=== PATIENT | female | born 2005 | race Caucasian/White ===

== ENCOUNTER 2023-04-09 13:29 | Outpatient (CLI) | payer MEDICAID, SELFPAY ==
[2023-04-09 14:08] VITALS: BMI 25.9
[2023-04-09 14:12] VITALS: BP 107/67; PULSE 100; PULSE 106; TEMP 36.2; O2SAT 97
--- NOTE | 2023-04-10 10:47 | OB.TRI.NOTE ---
HPI - General General Date of Admission: 04/09/23 Date of Service: 04/09/23 HPI Narrative CRYSTAL ACEVEDO, is a 17 F who presents with JUSTUS: 04/18/23. Presents with contractions PFSH PFSH Medical History (Updated 04/10/23 @ 10:50 by Linette Greenberg CNM) False labor Home Medications albuterol sulfate 90 mcg/actuation aerosol inhaler 2 inh inhalation Q4H PRN asthma 04/09/23 [History Last Taken Unknown] buspirone 10 mg tablet 10 mg PO BID 04/09/23 [History Last Taken 04/07/23 08:00 10 mg] ferrous sulfate 325 mg (65 mg iron) tablet (Feosol) 325 mg PO DAILY 04/09/23 [History Last Taken 04/04/23 17:00 325 mg] omeprazole 10 mg capsule,delayed release 10 mg PO DAILY 04/09/23 [History Last Taken 04/07/23 08:00 10 mg] vit no.95-ferrous fumarate 28 mg-folic acid 800 mcg tablet () 1 tab PO DAILY 04/09/23 [History Last Taken 04/05/23 08:00 1 TAB] Allergy/AdvReac Type Severity Reaction Status Date / Time No Known Allergies Allergy Verified 04/09/23 14:09 NST FHR Rate Baby A Baseline: 125 Variability:: Moderate Accelerations:: 15 x 15 Decelerations:: None NST Reactive:: Yes Uterine Activity:: Irregular Assessment & Plan (1) False labor: PLAN: Plan 1) NST reactive 2) No active labor 3) D/C home
== END 2023-04-09 16:10 | disposition home or self-care (01) ==
LOC: WPOUT 13:57 → WP 13:57
PROVIDERS: Referring Provider Advanced Practice Midwife; Visit Provider Advanced Practice Midwife
DX: O47.9 False labor, unspecified (principal)
CPT/HCPCS: 59025; 59050; 99221; G0378

== ENCOUNTER 2023-04-11 18:45 | Outpatient (CLI) | payer MEDICAID, SELFPAY ==
--- OUTSIDE RECORDS SUMMARY | 2023-04-11 19:00 | XMS RPT_ITS | CCD ---
Author Name Unknown Address [address] [place] [address] [address] [place] [address] Organization [facility] Care Team Providers Care Fur Drummer Name Role Phone AGGIE MCCLELLAN CNM Attending Unavailable AGGIE MCCLELLAN CNM Primary Care Unavailable AGGIE MCCLELLAN CNM Admitting Unavailable JL PATEL Attending Unavailable KEMAL SHORT Attending Unavailable TRUDI MENDEZ Referring Unavailable TRUDI MENDEZ Attending CANDICE Wallace Referring Unavailable Problems Problem Classification Problem Date Documented Da te Episodic/Chronic Residual codes; unclassified (1 source) 37 weeks gestation of ; Translations: [37 weeks gestation of ] Onset: 03-30-2023 Episodic Results Test Name Value Interpretation Reference Range Facil ity Encounters Encounter Date Encounter Type Care Provider Facility Start: 04-08-2023 ambulatory JL PATEL Facilit y:[facility] Start: 04-05-2023 End: 04-05-2023 ambulatory KEMAL SHORT Facility:[facility] Start: 03-30-2023 End: 03-31-2023 ambulatory TRUDI MENDEZ Facility:[facility] Start: 03-22-2023 End: 03-22-2023 ambulatory AGGIE Godinez [facility] Payers Date Payer Category Payer Medicaid [id number] 2003 Unknown [id number] Unknown [id number] Progress note 04-08-2023 Note Date & Type Note Facility 04-08-2023 Note HNO ID: [id number] Author: JL PATEL APRN.CNP Service: ? Author Type: Nurse Practitioner Type: Progress Notes Filed: 04/08/2023 17:00 Note Text: Patient did not log in for her virtual visit with the provider. She did not answer her phone when she was contacted. [facility] Progress note 04-08-2023 Note Date & Type Note Facility 04-08-2023 Note HNO ID: [id number] Author: ?, ?, ? Service: ? Author Type: ? Type: Progress Notes Filed: 04/08/2023 08:45 Note Text: POPULATION HEALTH NAVIGATION OUTREACH Action/FYI 3rd attempt left message to add accounting machine mechanic to ob provider field Patient Identified by Name and : NO Outreach Outcome/Action Unable to reach patient: Left message Did you use a PCP flex slot to schedule this appointment? N/A Reason for Outreach [place] Payer: Payor[place] / Plan[place] / Product Type: Medicaid / Navigation Signature: Yolette Meneses April 08, 2023 8:45 AM [facility] Progress note 04-07-2023 Note Date & Type Note Facility 04-07-2023 Note HNO ID: [id number] Author: JEWELL BANSAL RN Service: ? Author Type: Registered Nurse Type: Progress Notes Filed: 04/07/2023 09:11 Note Text: Patient referred to Blood Management for anemia evaluation/pre-surgical optimization. Current and complete lab data unavailable. Unable to complete evaluation. Referring provider is aware. [facility] Clinical Note 04-06-2023 Note Date & Type Note Facility 04-06-2023 Note Patient Outreach (NE TNAV) CRYSTAL ACEVEDO ([id number]) 1 F Date Time Provider Department 04/06/23 YOLETTE MENESES During your visit today, we recorded the following information about you: Yolette Meneses 04/06/2023 10:22 AM Signed POPULATION HEALTH NAVIGATION OUTREACH Action/FYI Left message to add accounting machine mechanic to OB provider field My chart sent Patient Identified by Name and : NO Outreach Outcome/Action Unable to reach patient: Left message MyChart message sent Did you use a PCP flex slot to schedule this appointment? N/A Reason for Outreach Payer: Payor[place] / [place] / Product Type: Medicaid / Care Gap Reviewed:: N/A Reminder: Reminder note to check Health Maintenance for items below Health Maintenance items due: Hepatitis B Vaccine(1 of 3 - 3-dose series) Never done Covid-19 Vaccine(1) Never done Asthma Action Plan Never done Asthma Control Test Never done Pneumococcal Vaccine(1 of 2 - PCV) Never done HPV Vaccine(1 - 2-dose series) Never done Spirometry Never done Annual PCP Team Chronic Disease Visit Never done DTaP,Tdap,Td Vaccine(1 - Tdap) Never done Influenza Vaccine(1) Never done Navigation Signature: Yolette Meneses April 06, 2023 10:20 AM Yolette Meneses 04/08/2023 8:45 AM Signed POPULATION HEALTH NAVIGATION OUTREACH Action/FYI 3rd attempt left message to add accounting machine mechanic to ob provider field Patient Identified by Name and : NO Outreach Outcome/Action Unable to reach patient: Left message Did you use a PCP flex slot to schedule this appointment? N/A Reason for Outreach [place] Payer: Pay[place] / [place] / Product Type: Medicaid / Navigation Signature: Yolette Meneses April 08, 2023 8:45 AM Allergies As of Date: 04/06/2023 (No Known Allergies) Date Reviewed: 04/05/2023 Reviewed by: Kemal Short MD - Fully Assessed Reason for Visit: Population Health Navigation Outreach [3910] Cmt: Ob/peds Prescriptions as of 04/08/2023 - multivit 47/iron/folate 1/dha (PNV-DHA ORAL) Take 1 tablet by mouth once daily. - buspirone HCl (BUSPAR ORAL) Take 10 mg by mouth two times a day. - ferrous sulfate (IRON, FERROUS SULFATE,) 325 mg (65 mg iron) tablet Take 325 mg by mouth once daily. - ALBUTEROL INHALATION Inhale as instructed as needed. - omeprazole (PRILOSEC) 20 mg capsule Take 20 mg by mouth once daily. Problem List As Of Date 04/06/2023 Noted Resolved Asthma [J45.909] 03/30/2023 Anxiety during [O99.340, F41.9] 03/30/2023 Depression complicating in third trim*03/30/2023 with care elsewhere in third*03/30/2023 Anemia complicating , third trimester *03/31/2023 Encounter Status:Closed by YOLETTE MENESES on 04/06/23 [facility] Progress note 04-06-2023 Note Date & Type Note Facility 04-06-2023 Note HNO ID: [id number] Author: ?, ?, ? Service: ? Author Type: ? Type: Progress Notes Filed: 04/06/2023 10:22 Note Text: POPULATION HEALTH NAVIGATION OUTREACH Action/FYI Left message to add accounting machine mechanic to OB provider field My chart sent Patient Identified by Name and : NO Outreach Outcome/Action Unable to reach patient: Left message MyChart message sent Did you use a PCP flex slot to schedule this appointment? N/A Reason for Outreach Payer: Payor[place] / Plan[place] / Product Type: Medicaid / Care Gap Reviewed:: N/A Reminder: Reminder note to check Health Maintenance for items below Health Maintenance items due: Hepatitis B Vaccine(1 of 3 - 3-dose series) Never done Covid-19 Vaccine(1) Never done Asthma Action Plan Never done Asthma Control Test Never done Pneumococcal Vaccine(1 of 2 - PCV) Never done HPV Vaccine(1 - 2-dose series) Never done Spirometry Never done Annual PCP Team Chronic Disease Visit Never done DTaP,Tdap,Td Vaccine(1 - Tdap) Never done Influenza Vaccine(1) Never done Navigation Signature: Yolette Meneses April 06, 2023 10:20 AM [facility] Progress note 04-05-2023 Note Date & Type Note Facility 04-05-2023 Note HNO ID: [id number] Author: ALIA BOYD RN Service: ? Author Type: Registered Nurse Type: Progress Notes Filed: 04/05/2023 16:49 Note Text: Received a disk from [facility] Medicine with anatomy US. Sent for scanning. Alia Boyd RN [facility] Progress note 03-30-2023 Note Date & Type Note Facility 03-30-2023 Note HNO ID: [id number] Author: TRUDI MENDEZ APRN.SANDY Service: ? Author Type: Resistor Winder Type: Progress Notes Filed: 03/31/2023 12:44 Note Text: INITIAL OB ASSESSMENT HPI: Crystal is a 17 year old here with sister in law to establish Obstetrical Care. No LMP recorded. Patient is . from OB Dating Form. Do you have regular periods/menstrual cycles? Yes was unplanned but accepted Complaints: cramping due to dehydration- seen in ED this week OB History T1 L0 SAB0 IAB0 Ectopic0 Multiple0 Live Births0 How many pregnancies have you had before? Have you had a prior urban between 20w and 36w6d? No Did you present in active spontaneous labor or have ruptured membranes, or advanced cervical dilation (greater than or equal to 4 cm) or effacement? No Did you have a previous baby with a GBS Infection? No Please select all that apply for any prior : N/A Did you have a partner with Herpes? No Prior : never History of 4th degree laceration: No Patient's Risk Screening for delivery: MEDICAL/PSYCHOSOCIAL HISTORY: History of hemorrhage or bleeding concerns: No Thyroid Disease: No History of chronic hypertension: No History of pre-existing diabetes: No BMI 27.64 kg/(m2) History of abnormal pap: No Prior treatment for cervical dysplasia: N/A. History of STDs: None Tobacco use: No E-Cigarette/Vaping Use: Yes Caffeine use: Yes Drug use: No Alcohol use: No Multivitamin with Folic acid: Yes Taoism or heritage: No Would refuse blood transfusion if medically necessary: No No results found for: ABORHD Social Needs: How often does this describe you? I don't have enough money to pay my bills: Never Within the past 12 months, have you worried that your food would run out before you had money to buy more? Sometimes In the past 12 months, has lack of reliable transportation kept you from going to medical appointments or work, or from getting things needed for daily living? Never In the past 12 months, have you had any concerns about having a place to live, or about the condition or quality of your housing? Never Would you like more information on any of the following (please check all that apply)? Resistor Winder care Social History: Do you have any history of depression, anxiety, PTSD, or other mood problems? Yes Do you have a history of abuse or trauma that may impact your experience? No Are you currently employed? No Depression/Anxiety Screening: admits to symptoms of depression. OB Depression and Anxiety Screening- This Encounter (since 03/29/2023) Over the past 2 weeks have you felt down, depressed, or hopeless? Positive - Further Testing Indicated Over the past two weeks, have you felt little interest or pleasure in doing things?? Positive - Further Testing Indicated I have been able to laugh and see the funny side of things. As much as I always could I have looked forward with enjoyment to things. Rather less than I used to I have blamed myself unnecessarily when things went wrong. Yes, most of the time I have been anxious or worried for no good reason. Yes, sometimes I have felt scared or panicky for no good reason. Yes, sometimes Things have been getting on top of me. Yes, sometimes I haven't been coping as well as usual I have been so unhappy that I have had difficulty sleeping. Yes, most of the time I have felt sad or miserable. Yes, most of the time I have been so unhappy that I have been crying. Yes, quite often The thought of harming myself has occurred to me. Hardly ever [place] Depression Scale Total 19 Feeling nervous, anxious or on edge 3-Nearly every day Not being able to stop or control worrying 1-Several days Anxiety Pre-Screening Total (If >/= 3 additional questions will be reviewed) 4 Worrying too much about different things 1-Several days Trouble relaxing 1-Several days Being so restless that it is hard to sit still 1-Several days Becoming easily annoyed or irritable 3-Nearly every day Feeling afraid, as if something awful might happen 1-Several days Anxiety (VIOLETA) Full Screening Total 11 Marital Status:Co-habitating Partner: Name: Mike Age: 20 Occupation: works in a [place] [employer] Gender: Male History of STDs: None PAST MEDICAL HISTORY Diagnosis Date Depression Generalized anxiety disorder PAST SURGICAL HISTORY Procedure Laterality Date REMOVAL GALLBLADDER 11/07/2018 Current Outpatient Medications Medication Sig Dispense Refill multivit 47/iron/folate 1/dha (PNV-DHA ORAL) Take 1 tablet by mouth once daily. buspirone HCl (BUSPAR ORAL) Take 10 mg by mouth two times a day. ferrous sulfate (IRON, FERROUS SULFATE,) 325 mg (65 mg iron) tablet Take 325 mg by mouth once daily. ALBUTEROL INHALATION Inhale as instructed as needed. omeprazole (PRILOSEC) 20 mg capsule Take 20 mg by mouth once daily (more content not included)... [facility] Summary Purpose Family History No Family History Records FoundNo Family History Records Found Advance Directives No Advanced Directives Records FoundNo Advanced Directives Records Found Additional Source Comments INFORMATION SOURCE (unrecogn ized section and content) DATE CREATED AUTHOR AUTHOR'S ORGANIZ ATION 04/10/2023 [facility] FOR RECORDS PERTAINING TO PATIENTS WHO ARE OR HAVE BEEN ENROLLED IN A CHEMICAL DEPENDENCY/SUBSTANCEABUSE PROGRAM, SOME INFORMATION MAY BE OMITTED. This clinical summary was aggregated from multiple sources. Caution should be exercised in using it in the provision of clinical care. This summary normalizes information from multiple sources, and as a consequence, information in this document may materially change the coding, format and clinical context of patient data. In addition, data may be omitted in some cases. CLINICAL DECISIONS SHOULD BE BASED ON THE PRIMARY CLINICAL RECORDS. [facility] [employer] [facility]. provides no warranty or guarantee of the accuracy or completeness of information in this document.
[2023-04-11 19:48] VITALS: BP 106/71; PULSE 85; O2SAT 98
[2023-04-11 19:50] VITALS: TEMP 36.1
[2023-04-11 20:53] VITALS: BMI 25.9
[2023-04-11] MEDS: Acetaminophen 500 MG Tablet 1000 MG PO (21:11)
--- NOTE | 2023-04-11 21:13 | NURSING ---
this RN reviewed discharge instructions with patient and significant other, patient and partner verbalized understanding and states no questions at his time. Patient discharged home
--- NOTE | 2023-04-14 09:00 | OB.TRI.NOTE ---
HPI - General General Date of Service: 04/11/23 HPI Narrative CRYSTAL ACEVEDO, is a 17 F @ 38+ weeks c/o contractions Maternal Data Information JUSTUS Calculator Estimated Delivery Date Method Current WG Current Estimate 04/18/23 Manual 39w 3d PFSH PFS Medical History (Updated 04/14/23 @ 09:[address] Kinsey Chacon MD) Anxiety Asthma Depression False labor depression Home Medications albuterol sulfate 90 mcg/actuation aerosol inhaler 2 inh inhalation Q4H PRN asthma 04/09/23 [History Last Taken Unknown] buspirone 10 mg tablet 10 mg PO BID 04/09/23 [History Last Taken 04/07/23 08:00 10 mg] ferrous sulfate 325 mg (65 mg iron) tablet (Feosol) 325 mg PO DAILY 04/09/23 [History Last Taken 04/04/23 17:00 325 mg] omeprazole 10 mg capsule,delayed release 10 mg PO DAILY 04/09/23 [History Last Taken 04/07/23 08:00 10 mg] vit no.95-ferrous fumarate 28 mg-folic acid 800 mcg tablet () 1 tab PO DAILY 04/09/23 [History Last Taken 04/05/23 08:00 1 TAB] Allergy/AdvReac Type Severity Reaction Status Date / Time No Known Allergies Allergy Verified 04/11/23 20:55 Social History Smoking Status: Current some day smoker History Elective abortions Hx Para 1 Spontaneous abortions Hx # Term Pregnancies Ectopic pregnancies Hx # Pregnancies Multiple births # of living children Physical Exam Narrative /-3 NST FHR Rate Baby A Baseline: 130s Variability:: Moderate Accelerations:: 10 x 10 Decelerations:: None (possible one variable - but reactive cat 1 for >20 min after that) NST Reactive:: Yes FHR Category:: Category I Uterine Activity:: irregular Assessment & Plan (1) Irregular contractions: PLAN: Plan @ 38+ weeks, false labor dc home nst reactive cat 1 no Cervical change
== END 2023-04-11 21:13 | disposition home or self-care (01) ==
LOC: WPOUT 18:58 → WP 18:58
PROVIDERS: Referring Provider Obstetrics & Gynecology; Visit Provider Obstetrics & Gynecology
DX: O47.1 False labor at or after 37 completed weeks of gestation (principal); O99.333 Smoking (tobacco) complicating pregnancy, third trimester; F17.200 Nicotine dependence, unspecified, uncomplicated; Z3A.38 38 weeks gestation of pregnancy
CPT/HCPCS: 59025; 59050; 99221; G0378

== ENCOUNTER 2023-04-12 20:45 | Inpatient (IN) | payer MEDICAID, SELFPAY ==
[2023-04-12] VITALS (24 sets, daily range): BP systolic 94–127; BP diastolic 52–78; PULSE 65–100; TEMP 36.7; O2SAT 96–100; BMI 25.0
--- OUTSIDE RECORDS SUMMARY | 2023-04-12 20:41 | XMS RPT_ITS | CCD ---
Author Name Unknown Address [address] [place] [address] [address] [place] [id number] Organization [facility] Care Team Providers Care Pt Escort Name Role Phone AGGIE MCCLELLAN CNM Attending [...] Facility Start: 04-08-2023 ambulatory JL PATEL Facilit y:[facility] Start: 04-05-2023 End: 04-05-2023 ambulatory KEMAL SHORT Facility:[facility] Start: 03-30-2023 End: 03-31-2023 ambulatory TRUDI MENDEZ Facility:[facility] Start: 03-22-2023 End: 03-22-2023 ambulatory AGGIE Godinez [facility] Payers Date Payer Category Payer Medicaid [id number] 2003 Unknown [id number] Unknown [id number] Progress note 04-08-2023 Note Date & Type Note Facility 04-08-2023 Note HNO ID: [id number] Author: JL PATEL APRN.CNP Service: ? Author Type: Nurse Practitioner Type: Progress Notes Filed: 04/08/2023 17:00 Note Text: Patient did not log in for her virtual visit with the provider. She did not answer her phone when she was contacted. [facility] Progress note 04-08-2023 Note Date & Type Note Facility 04-08-2023 Note HNO ID: [id number] Author: ?, ?, ? Service: ? Author Type: ? Type: Progress Notes Filed: 04/08/2023 08:45 Note Text: POPULATION HEALTH NAVIGATION OUTREACH Action/FYI 3rd attempt left message to add cloth weigher to ob provider field Patient Identified by Name and : NO Outreach Outcome/Action Unable to reach patient: Left message Did you use a PCP flex slot to schedule this appointment? N/A Reason for Outreach [place] Payer: Payor[place] / Plan: [place] MED[place] / Product Type: Medicaid / Navigation Signature: Yolette Meneses April 08, 2023 8:45 AM [facility] Progress note 04-07-2023 Note Date & Type Note Facility 04-07-2023 Note HNO ID: [id number] Author: JEWELL BANSAL RN Service: ? Author Type: Registered Nurse Type: Progress Notes Filed: 04/07/2023 09:11 Note Text: Patient referred to Blood Management for anemia evaluation/pre-surgical optimization. Current and complete lab data unavailable. Unable to complete evaluation. Referring provider is aware. [facility] Clinical Note 04-06-2023 Note Date & Type Note Facility 04-06-2023 Note Patient Outreach (NE TNAV) CRYSTAL ACEVEDO ([id number]) 1 F Date Time Provider Department 04/06/23 YOLETTE MENESES During your visit today, we recorded the following information about you: Yolette Meneses 04/06/2023 10:22 AM Signed POPULATION HEALTH NAVIGATION OUTREACH Action/FYI Left message to add cloth weigher to OB provider field My chart sent Patient Identified by Name and : NO Outreach Outcome/Action Unable to reach patient: Left message MyChart message sent Did you use a PCP flex slot to schedule this appointment? N/A Reason for Outreach Payer: Pay[place] / Plan: [place] / Product Type: Medicaid / Care [...] Action/FYI 3rd attempt left message to add cloth weigher to ob provider field Patient Identified by Name and : NO Outreach Outcome/Action Unable to reach patient: Left message Did you use a PCP flex slot to schedule this appointment? N/A Reason for Outreach [place] Payer: Pay[place] / Plan[place] / Product Type: Medicaid / Navigation [...] Encounter Status:Closed by YOLETTE MENESES on 04/06/23 [facility] Progress note 04-06-2023 Note Date & Type Note Facility 04-06-2023 Note HNO ID: [id number] Author: ?, ?, ? Service: ? Author Type: ? Type: Progress Notes Filed: 04/06/2023 10:22 Note Text: POPULATION HEALTH NAVIGATION OUTREACH Action/FYI Left message to add cloth weigher to OB provider field My chart sent Patient Identified by Name and : NO Outreach Outcome/Action Unable to reach patient: Left message MyChart message sent Did you use a PCP flex slot to schedule this appointment? N/A Reason for Outreach Payer: Pay[place] / Plan: [place] / Product Type: Medicaid / Care [...] Yolette Meneses April 06, 2023 10:20 AM [facility] Progress note 04-05-2023 Note Date & Type Note Facility 04-05-2023 Note HNO ID: [id number] Author: ALIA BOYD RN Service: ? Author Type: Registered Nurse Type: Progress Notes Filed: 04/05/2023 16:49 Note Text: Received a disk from [facility] Medicine with anatomy US. Sent for scanning. Alia Boyd RN [facility] Progress note 03-30-2023 Note Date & Type Note Facility 03-30-2023 Note HNO ID: [id number] Author: TRUDI MENDEZ APRN.SANDY Service: ? Author Type: Livestock Buyer Type: Progress Notes Filed: 03/31/2023 12:44 Note [...] use: No Multivitamin with Folic acid: Yes Cheondoism or heritage: No Would refuse blood transfusion [...] the following (please check all that apply)? Livestock Buyer care Social History: Do you have any [...] myself has occurred to me. Hardly ever [place] Depression Scale Total 19 Feeling nervous, anxious [...] Mike Age: 20 Occupation: works in a [employer] Gender: Male History of STDs: None PAST [...] mouth once daily (more content not included)... [facility] Summary Purpose Family History No Family History Records FoundNo Family History Records Found Advance Directives No Advanced Directives Records FoundNo Advanced Directives Records Found Additional Source Comments INFORMATION SOURCE (unrecogn ized section and content) DATE CREATED AUTHOR AUTHOR'S ORGANIZ ATION 04/10/2023 [facility] FOR RECORDS PERTAINING TO PATIENTS WHO ARE [...] BE BASED ON THE PRIMARY CLINICAL RECORDS. [facility] [employer] [facility]. provides no warranty or guarantee of the accuracy or completeness of information in this document.
--- OUTSIDE RECORDS SUMMARY | 2023-04-12 20:52 | XMS RPT_ITS | CCD ---
Author Name Unknown Address [address] [place] [address] [address] [place] [id number] Organization [facility] Care Team Providers Care Mental Health Worker Name Role Phone AGGIE MCCLELLAN CNM Attending [...] Facility Start: 04-08-2023 ambulatory JL PATEL Facilit y:[facility] Start: 04-05-2023 End: 04-05-2023 ambulatory KEMAL SHORT Facility:[facility] Start: 03-30-2023 End: 03-31-2023 ambulatory TRUDI MENDEZ Facility:[facility] Start: 03-22-2023 End: 03-22-2023 ambulatory AGGIE Godinez [facility] Payers Date Payer Category Payer Medicaid [id number] 2003 Unknown [id number] Unknown [id number] Progress note 04-08-2023 Note Date & Type Note Facility 04-08-2023 Note HNO ID: [id number] Author: JL PATEL APRN.CNP Service: ? Author Type: Nurse Practitioner Type: Progress Notes Filed: 04/08/2023 17:00 Note Text: Patient did not log in for her virtual visit with the provider. She did not answer her phone when she was contacted. [facility] Progress note 04-08-2023 Note Date & Type Note Facility 04-08-2023 Note HNO ID: [id number] Author: ?, ?, ? Service: ? Author Type: ? Type: Progress Notes Filed: 04/08/2023 08:45 Note Text: POPULATION HEALTH NAVIGATION OUTREACH Action/FYI 3rd attempt left message to add calciminer to ob provider field Patient Identified by Name and : NO Outreach Outcome/Action Unable to reach patient: Left message Did you use a PCP flex slot to schedule this appointment? N/A Reason for Outreach [place] Payer: Payor[place] / Plan: [place] / Product Type: Medicaid / Navigation Signature: Yolette Meneses April 08, 2023 8:45 AM [facility] Progress note 04-07-2023 Note Date & Type Note Facility 04-07-2023 Note HNO ID: [id number] Author: JEWELL BANSAL RN Service: ? Author Type: Registered Nurse Type: Progress Notes Filed: 04/07/2023 09:11 Note Text: Patient referred to Blood Management for anemia evaluation/pre-surgical optimization. Current and complete lab data unavailable. Unable to complete evaluation. Referring provider is aware. [facility] Clinical Note 04-06-2023 Note Date & Type Note Facility 04-06-2023 Note Patient Outreach (NE TNAV) CRYSTAL ACEVEDO ([id number]) 1 F Date Time Provider Department 04/06/23 YOLETTE MENESES During your visit today, we recorded the following information about you: Yolette Meneses 04/06/2023 10:22 AM Signed POPULATION HEALTH NAVIGATION OUTREACH Action/FYI Left message to add calciminer to OB provider field My chart sent Patient Identified by Name and : NO Outreach Outcome/Action Unable to reach patient: Left message MyChart message sent Did you use a PCP flex slot to schedule this appointment? N/A Reason for Outreach Payer: Pay[place] / Plan[place] / Product Type: Medicaid / Care [...] Meneses April 06, 2023 10:20 AM Yolette Meneess 04/08/2023 8:45 AM Signed POPULATION HEALTH NAVIGATION OUTREACH Action/FYI 3rd attempt left message to add calciminer to ob provider field Patient Identified by Name and : NO Outreach Outcome/Action Unable to reach patient: Left message Did you use a PCP flex slot to schedule this appointment? N/A Reason for Outreach [place] Payer: Pay[place] / [place] / Product Type: Medicaid / Navigation [...] Encounter Status:Closed by YOLETTE MENESES on 04/06/23 [facility] Progress note 04-06-2023 Note Date & Type Note Facility 04-06-2023 Note HNO ID: [id number] Author: ?, ?, ? Service: ? Author Type: ? Type: Progress Notes Filed: 04/06/2023 10:22 Note Text: POPULATION HEALTH NAVIGATION OUTREACH Action/FYI Left message to add calciminer to OB provider field My chart sent Patient Identified by Name and : NO Outreach Outcome/Action Unable to reach patient: Left message MyChart message sent Did you use a PCP flex slot to schedule this appointment? N/A Reason for Outreach Payer: Pay[place] / [place] / Product Type: Medicaid / Care [...] Yolette Meneses April 06, 2023 10:20 AM [facility] Progress note 04-05-2023 Note Date & Type Note Facility 04-05-2023 Note HNO ID: [id number] Author: ALIA BOYD RN Service: ? Author Type: Registered Nurse Type: Progress Notes Filed: 04/05/2023 16:49 Note Text: Received a disk from [facility] Medicine with anatomy US. Sent for scanning. Alia Boyd RN [facility] Progress note 03-30-2023 Note Date & Type Note Facility 03-30-2023 Note HNO ID: [id number] Author: TRUDI MENDEZ APRN.SANDY Service: ? Author Type: Pet Training Instructor Type: Progress Notes Filed: 03/31/2023 12:44 Note [...] use: No Multivitamin with Folic acid: Yes Sikh or heritage: No Would refuse blood transfusion [...] the following (please check all that apply)? Pet Training Instructor care Social History: Do you have any [...] myself has occurred to me. Hardly ever [place] Depression Scale Total 19 Feeling nervous, anxious [...] mouth once daily (more content not included)... [facility] Summary Purpose Family History No Family History Records FoundNo Family History Records Found Advance Directives No Advanced Directives Records FoundNo Advanced Directives Records Found Additional Source Comments INFORMATION SOURCE (unrecogn ized section and content) DATE CREATED AUTHOR AUTHOR'S ORGANIZ ATION 04/10/2023 [facility] FOR RECORDS PERTAINING TO PATIENTS WHO [...] BE BASED ON THE PRIMARY CLINICAL RECORDS. [facility] [employer] [facility]. provides no warranty or guarantee of the accuracy or completeness of information in this document.
[2023-04-12] MEDS: LACTATED RINGERS 500 ML 999 ML IV (21:02)
[2023-04-12 21:11] LABS: Absolute Lymphocyte Count 1.28 X10^3/uL (0.83-4.51); Basophil# 0.03 X10^3/uL; Basophil% 0.4 % (0-1); Eosinophil# 0.02 X10^3/uL; Eosinophils% 0.3 % (0-5); Hematocrit 30.4 % (37-47); Hemoglobin 9.2 g/dL (12.0-15.0); Lymphocyte # 1.28 X10^3/ul (0.83-4.51); Lymphocyte % 16.3 % (19-41); Mean Corp Hgb Conc 30.3 g/dL (32-36); Mean Corpuscular Hgb 22.2 pg (27.0-32.0); Mean Corpuscular Volume 73.3 fL (81-99); Mean Platelet Vol. 9.9 fl (6.2-12.0); Monocyte# 0.49 X10^3/uL; Monocyte% 6.2 % (0-10); NRBC Flagged by Analyzer 0 % (0-5); Neutrophil % 76.3 % (47-70); Platelet Count 337 K/mm3 (150-450); RBC Distribution Width CV 15.8 % (11.6-14.6); RBC Distribution Width SD 40.9 fl (35.1-43.9); Red Blood Count 4.15 M/mm3 (4.2-5.4); White Blood Count 7.9 K/mm3 (4.4-11.0)
[2023-04-12] MEDS: Lactated Ringers 1,000 ML 200 ML IV (21:31)
[2023-04-12 21:46] LABS: Syphilis Antibodies Non-reactive
--- NOTE | 2023-04-12 22:02 | PCM.HP.OB ---
HPI - General General Date of Admission: 04/12/23 HPI Narrative CRYSTAL ACEVEDO, is a 17 F who presents at 39w1d with JUSTUS 04/18/23 . Maternal Data Information JUSTUS Calculator Estimated Delivery Date Method Current WG Current Estimate 04/18/23 Manual 39w 1d PFSH PFS Medical History (Updated 04/12/23 @ 22:06 by Linette Greenberg CNM) Anxiety Asthma Depression False labor depression Home Medications albuterol sulfate 90 mcg/actuation aerosol inhaler 2 inh inhalation Q4H PRN asthma 04/09/23 [History Last Taken Unknown] buspirone 10 mg tablet 10 mg PO BID 04/09/23 [History Last Taken 04/07/23 08:00 10 mg] ferrous sulfate 325 mg (65 mg iron) tablet (Feosol) 325 mg PO DAILY 04/09/23 [History Last Taken 04/04/23 17:00 325 mg] omeprazole 10 mg capsule,delayed release 10 mg PO DAILY 04/09/23 [History Last Taken 04/07/23 08:00 10 mg] vit no.95-ferrous fumarate 28 mg-folic acid 800 mcg tablet () 1 tab PO DAILY 04/09/23 [History Last Taken 04/05/23 08:00 1 TAB] Allergy/AdvReac Type Severity Reaction Status Date / Time No Known Allergies Allergy Verified 04/11/23 20:55 Social History Smoking Status: Current some day smoker History Elective abortions Hx Para 1 Spontaneous abortions Hx # Term Pregnancies Ectopic pregnancies Hx # Pregnancies Multiple births # of living children ROS Constitutional Constitutional: Reports systems reviewed and no addt'l complaints, except as documented; Denies headache(s) Eyes Eyes: Denies acute decrease in peripheral vision, blurry vision or change in vision ENT HEENT: Reports systems reviewed and no addt'l complaints, except as documented Cardiovascular Cardiovascular: Denies chest pain or dizziness Respiratory/Chest Respiratory/Chest: Denies cough, dyspnea, dyspnea on exertion, shortness of breath at rest or shortness of breath with exertion Gastrointestinal Gastrointestinal: Denies abdominal pain, diarrhea, nausea or vomiting Genitourinary Genitourinary: Denies abdominal discomfort Musculoskeletal Musculoskeletal: Denies limited range of motion Integumentary Integumentary: Reports systems reviewed and no addt'l complaints, except as documented Neurologic Neurologic: Reports systems reviewed and no addt'l complaints, except as documented Psychiatric Psychiatric: Reports systems reviewed and no addt'l complaints, except as documented Endocrine Endocrinology: Reports systems reviewed and no addt'l complaints, except as documented Hematologic/Lymphatic Hematologic/Lymphatic: Reports systems reviewed and no addt'l complaints, except as documented Allergic/Immunologic Allergic/Immunologic: Reports systems reviewed and no addt'l complaints, except as documented Vital Signs Vital Signs Vital Signs: 04/12/23 20:39 04/12/23 20:39 04/12/23 20:39 Temperature Temperature Source Temporal Pulse Rate 82 Blood Pressure 113/70 BP Systolic 113 BP Diastolic 70 Pulse Ox 04/12/23 20:39 04/12/23 20:39 04/12/23 21:45 Temperature 98.0 F Temperature Source Pulse Rate 81 Blood Pressure BP Systolic BP Diastolic Pulse Ox 98 04/12/23 21:45 04/12/23 21:50 04/12/23 21:50 Temperature Temperature Source Pulse Rate 84 Blood Pressure BP Systolic BP Diastolic Pulse Ox 96 99 04/12/23 21:51 04/12/23 21:51 04/12/23 21:54 Temperature Temperature Source Pulse Rate 80 Blood Pressure 94/53 L 94/55 L BP Systolic 94 94 BP Diastolic 53 55 Pulse Ox 04/12/23 21:55 04/12/23 21:55 04/12/23 21:59 Temperature Temperature Source Pulse Rate 68 Blood Pressure 101/52 L BP Systolic 101 BP Diastolic 52 Pulse Ox 98 04/12/23 22:00 04/12/23 22:00 Temperature Temperature Source Pulse Rate 79 Blood Pressure BP Systolic BP Diastolic Pulse Ox 99 Physical Exam Const alert and oriented x3 General Appearance: cooperative Orientation / Consciousness: awake, oriented to person, oriented to place and oriented to time Exam Limitations: no limitations HEENT normocephalic Head and Scalp: normal to inspection, normocephalic and atraumatic Face and Sinus: normal facial exam Eyes General Eye: normal appearance of both eyes Neck full ROM Chest Chest: symmetrical chest wall rise Resp normal respiratory effort and normal air movement Auscultation: clear to auscultation bilaterally Cardio regular rate, regular rhythm, S1 normal heart sound, S2 normal heart sound, no murmurs, no rub, no gallops and no clicks GI normal to inspection, nondistended, normoactive bowel sounds and non-tender appearance of the vagina normal Bladder / Kidney Exam: no CVA tenderness Manual OB Exam: estimated gestational size appropriate, presentation cephalic and dilated 7 Amniotic Fluid: clear amniotic fluid Back/Spine normal ROM Extremity normal to inspection and full ROM Skin no rashes or lesions noted Neuro oriented x3, CN's II-XII intact bilaterally and moves all extremities Sensorium / Orientation: awake, alert and oriented to person Motor Exam: clonus absent Deep Tendon Reflexes: Rt Patellar (L4): 2+ and Lt Patellar (L4): 2+ Labs Labs Labs: Blood Type O POSITIVE Antibody Screen NEGATIVE Hct 30.4 % (37-47) L Hgb 9.2 g/dL (12.0-15.0) L Syphilis Total Ab Non-reactive RPR negative GC/CT negative GBS negative HepC negative HBsAG negative Rubella equivocal HIV negative O positive Assessment & Plan (1) Active labor: (2) SROM (spontaneous rupture of membranes): (3) 39 weeks gestation of : (4) Anemia affecting : (5) Depression affecting : (6) Rubella non-immune status, antepartum: (7) Vaping nicotine dependence, tobacco product: PLAN: Plan 1) Admit to labor and delivery 2) GBS negative 3) Epidural for pain management 4) Continuous EFM 5) Category 1 FHT 6) Routine Labs 7) Dr.James rodriguez physician and notified of admission. michael physician, notified of patient status and of above assessment and plan
[2023-04-12] MEDS: Oxytocin 15 Units/NS 250ml 15 UNITS/250 ML IV.SOLN 999 UNITS IV (22:36)
[2023-04-12] MEDS: Oxytocin 10 UNITS/ML Vial IM (22:44)
[2023-04-12] MEDS: Methylergonovine 0.2 MG/ML Ampul 0.200000000000000011 MG IM (22:44)
--- NOTE | 2023-04-12 22:52 | EX.PCM.OBRPT ---
Maternal Data Information JUSTUS Calculator Estimated Delivery Date Method Current WG Current Estimate 04/18/23 Manual 39w 1d Vaginal Delivery Maternal Presentation Maternal Presentation: Active Labor and Spontaneous Rupture of Membranes Maternal Presentation: Active labor Operative Information Date of Procedure: 04/12/23 Pre-Operative Diagnosis: SROM Post-Operative Diagnosis: , PPH Surgery / Procedure Performed: Spontaneous Vaginal Delivery Type of Anesthesia: Epidural Special Medications: Pitocin 10 u IM, Methergine 0.2 mg IM, Pitocin 15 units in 250 ml NS Estimated Blood Loss: 500 ml Time of Delivery: 22:35 Findings Description of Procedure: Progressed to complete with urge to push. Epidural for pain management. of viable female over intact perineum. APGARS 8 , 9 respectively. Infant head delivered with body immediately forthcoming, CAN x1, delivered through. Placed on maternal abdomen, strong cry. Mouth and nares suctioned for secretions. Pitocin started for active 3rd stage management. Cord doubly clamped and cut by grandmother after pulsations ceased, delayed cord clamping. Placenta delivered intact via mccarty , 3 vessel cord intact. Uterine atony with increased bleeding noted. Pitocin wide open and bimanual compression. Bladder drained with compression. Uterine atony still noted, Methergine 0.2 mg given IM. Hemostasis achieved. Perineum inspected: right labial laceration unrepaired, hemostasis achieved. Fundus firm and hemostasis achieved. EBL 500 ml. Mom and baby stable, planning to breastfeed. Family bonding well. Dr. Forte notified of delivery. Presentation: Vertex and TONY Amniotic Membrane Rupture Type: Spontaneous Time of Membrane Rupture: 19:56 Amniotic Fluid Description: Clear Placental Delivery Description: Spontaneous Placenta Disposition: [facility] Cord Vessel Description: 3 Vessels Cord Entanglement: Around neck x 1, loose Nuchal Cord Compression: Without compression Infant A Gender: Female (1 minute): 8 (5 minute): 9 Delayed Cord Clamping: Yes Post Vaginal Delivery Medications Given After Delivery: IV Pitocin, IM Pitocin and IM Methergin Episiotomy Description: None Laceration: Perineal Extension/lac and 1st degree Complication Complications: None
[2023-04-13] VITALS (13 sets, daily range): BP systolic 94–122; BP diastolic 52–67; PULSE 74–100; RESP 15–16; TEMP 36.2–37; O2SAT 98–99
[2023-04-13] MEDS: Acetaminophen 500 MG Tablet 1000 MG PO (02:22)
[2023-04-13 05:08] LABS: Absolute Lymphocyte Count 1.13 X10^3/uL (0.83-4.51); Absolute Neutrophil Count 9.2 X10^3/uL (2.0-7.7); Basophil# 0.02 X10^3/uL; Basophil% 0.2 % (0-1); Hematocrit 26.9 % (37-47); Hemoglobin 7.8 g/dL (12.0-15.0); Lymphocyte # 1.13 X10^3/ul (0.83-4.51); Mean Platelet Vol. 9.7 fl (6.2-12.0); Monocyte# 0.88 X10^3/uL; Monocyte% 7.8 % (0-10); NRBC Flagged by Analyzer 0 % (0-5); Neutrophil # 9.18 X10^3/uL (2.7-7.7); Neutrophil % 81.5 % (47-70); Platelet Count 257 K/mm3 (150-450); RBC Distribution Width CV 15.8 % (11.6-14.6); RBC Distribution Width SD 42.9 fl (35.1-43.9); Red Blood Count 3.54 M/mm3 (4.2-5.4); White Blood Count 11.3 K/mm3 (4.4-11.0)
[2023-04-13] MEDS: Ibuprofen 600 MG Tablet PO ×2 (08:01→19:15)
[2023-04-13] MEDS: 0.9% Saline Lock 10 ML Syringe IV ×2 (08:02→09:01)
[2023-04-13] MEDS: Iron Sucrose Complex 200 MG in 0.9% Normal Saline (100mL Bag) 100 ML 220 MG IV (08:03)
--- NOTE | 2023-04-13 08:32 | PCM.PN.OB ---
Subjective Subjective Patient seen at bedside. Feeling good. Denies any pain. Ambulating and voiding without difficulty. Lochia decreasing. with minimal support. Feeling tired . Objective Data Objective Data Vital Signs: Vital Signs Temp Pulse Resp BP Pulse Ox O2 Del Method 97.2 F L 88 15 96/55 L 98 Room Air 04/13/23 08:00 04/13/23 08:00 04/13/23 08:00 04/13/23 08:00 04/13/23 08:00 04/13/23 08:00 Oxygen Delivery Method Room Air Weight: 155 lb 3.287 oz Body Mass Index (BMI) 25.0 Intake & Output: Intake and Output for Last 24 Hours 04/11/23 04/12/23 04/13/23 23:59 23:59 23:59 Intake Total 949.52 / 949.52 Output Total 500 / 500 950 / 950 Balance 449.52 / 449.52 -950 / -950 Lab / Micro Data Attestation: I reviewed the patient's lab results. 04/13/23 04:58 Labs: Laboratory Results - last 24 hr 04/12/23 20:55: WBC 7.9, RBC 4.15 L, Hgb 9.2 L, Hct 30.4 L, MCV 73.3 L, MCH 22.2 L, MCHC 30.3 L, RDW Std Deviation 40.9, RDW Coeff of Erica 15.8 H, Plt Count 337, MPV 9.9, Immature Gran % (Auto) 0.500, Neut % (Auto) 76.3 H, Lymph % (Auto) 16.3 L, [place] % (Auto) 6.2, Eos % (Auto) 0.3, Baso % (Auto) 0.4, Absolute Neuts (auto) 6.0, Absolute Lymphs (auto) 1.28, Nucleated RBC % 0, Syphilis Total Ab Non-reactive, Blood Type O POSITIVE, Antibody Screen NEGATIVE 04/13/23 04:58: WBC 11.3 H, RBC 3.54 L, Hgb 7.8 L, Hct 26.9 L, MCV 76.0 L, MCH 22.0 L, MCHC 29.0 L, RDW Std Deviation 42.9, RDW Coeff of Erica 15.8 H, Plt Count 257, MPV 9.7, Immature Gran % (Auto) 0.500, Neut % (Auto) 81.5 H, Lymph % (Auto) 10.0 L, [place] % (Auto) 7.8, Eos % (Auto) 0.0, Baso % (Auto) 0.2, Absolute Neuts (auto) 9.2 H, Absolute Lymphs (auto) 1.13, Nucleated RBC % 0 ROS Eyes Eyes: Denies blurry vision, change in vision or spots in vision ENT HEENT: Denies dizziness or headache(s) Cardiovascular Cardiovascular: Denies abdominal pain, chest pain or dyspnea Respiratory/Chest Respiratory/Chest: Denies cough, dyspnea, shortness of breath at rest or shortness of breath with exertion Gastrointestinal Gastrointestinal: Denies abdominal pain, diarrhea or vomiting Genitourinary Genitourinary: Denies change in urinary stream, difficulty urinating or dysuria Musculoskeletal Musculoskeletal: Reports none Integumentary Integumentary: Denies rash Neurologic Neurologic: Denies dizziness, headache(s) or memory loss Physical Exam Const alert and no apparent distress General Appearance: cooperative and comfortable Exam Limitations: no limitations HEENT normocephalic Eyes General Eye: normal appearance of both eyes Neck full ROM General: normal visual inspection Chest Chest: symmetrical chest wall rise Resp normal respiratory effort and normal air movement Effort and Inspection: symmetric chest movement Auscultation: clear to auscultation bilaterally Cardio regular rate and regular rhythm GI normal to inspection, nondistended, normoactive bowel sounds Back/Spine normal ROM Extremity full ROM and no calf tenderness General Extremity: normal exam except as noted Skin no rashes or lesions noted Skin Narrative: Pale Neuro CN's II-XII intact bilaterally Psych mental status grossly normal Assessment & Plan (1) Anemia due to blood loss: (2) hemorrhage, delivered: (3) Rubella non-immune status, antepartum: (4) Depression affecting : (5) Anemia affecting : PLAN: Plan PPD 1 HGB 7.8 down from 9.2 IV FE infusing at this time Increase ambulation support Repeat CBC this evening
[2023-04-13] MEDS: busPIRone 5 MG Tablet 10 MG PO ×2 (11:03→22:39)
[2023-04-13] MEDS: Senna/Docusate Sodium 1 Tablet PO (16:07)
[2023-04-13 18:13] LABS: Hematocrit 25.3 % (37-47); Hemoglobin 7.3 g/dL (12.0-15.0); Mean Corp Hgb Conc 28.9 g/dL (32-36); Mean Corpuscular Volume 76.2 fL (81-99); Mean Platelet Vol. 9.9 fl (6.2-12.0); Platelet Count 260 K/mm3 (150-450); RBC Distribution Width CV 15.9 % (11.6-14.6); RBC Distribution Width SD 43.7 fl (35.1-43.9); Red Blood Count 3.32 M/mm3 (4.2-5.4); White Blood Count 7.7 K/mm3 (4.4-11.0)
[2023-04-14] MEDS: Acetaminophen 500 MG Tablet 1000 MG PO (00:07)
[2023-04-14 01:21] VITALS: BP 100/56; PULSE 92; O2SAT 98
[2023-04-14 01:26] VITALS: BP 100/56; PULSE 77; RESP 16; TEMP 36.4; O2SAT 98
[2023-04-14 05:13] LABS: Hematocrit 24.2 % (37-47); Mean Corp Hgb Conc 28.9 g/dL (32-36); Mean Corpuscular Hgb 22.1 pg (27.0-32.0); Mean Corpuscular Volume 76.3 fL (81-99); Mean Platelet Vol. 9.7 fl (6.2-12.0); Platelet Count 232 K/mm3 (150-450); RBC Distribution Width CV 15.9 % (11.6-14.6); RBC Distribution Width SD 43.8 fl (35.1-43.9); Red Blood Count 3.17 M/mm3 (4.2-5.4); White Blood Count 7.7 K/mm3 (4.4-11.0)
--- NOTE | 2023-04-14 07:15 | PCM.PN.CNM ---
Subjective Subjective Patient seen at bedside. Ambulating, showering and voiding without difficulty. Breast and formula feeding. Lochia is minimal. Denies pain. Objective Data Objective Data Vital Signs: Vital Signs Temp Pulse Resp BP Pulse Ox O2 Del Method 97.5 F L 77 16 100/56 L 98 Room Air 04/14/23 01:26 04/14/23 01:26 04/14/23 01:26 04/14/23 01:26 04/14/23 01:04/14/23 01:26 Oxygen Delivery Method Room Air Weight: 155 lb 3.287 oz Body Mass Index (BMI) 25.0 Intake & Output: Intake and Output for Last 24 Hours 04/12/23 04/13/23 04/14/23 23:59 23:59 23:59 Intake Total 949.52 / 949.52 110 / 110 Output Total 500 / 500 950 / 950 Balance 449.52 / 449.52 -840 / -840 Lab / Micro Data 04/14/23 05:05 Labs: Laboratory Results - last 24 hr 04/13/23 18:05: WBC 7.7, RBC 3.32 L, Hgb 7.3 L, Hct 25.3 L, MCV 76.2 L, MCH 22.0 L, MCHC 28.9 L, RDW Std Deviation 43.7, RDW Coeff of Erica 15.9 H, Plt Count 260, MPV 9.9 04/14/23 05:05: WBC 7.7, RBC 3.17 L, Hgb 7.0 L, Hct 24.2 L, MCV 76.3 L, MCH 22.1 L, MCHC 28.9 L, RDW Std Deviation 43.8, RDW Coeff of Erica 15.9 H, Plt Count 232, MPV 9.7 ROS Eyes Eyes: Denies blurry vision, change in vision or spots in vision ENT HEENT: Denies dizziness or headache(s) Cardiovascular Cardiovascular: Denies abdominal pain, chest pain or dyspnea Respiratory/Chest Respiratory/Chest: Denies cough, dyspnea, shortness of breath at rest or shortness of breath with exertion Gastrointestinal Gastrointestinal: Denies abdominal pain, diarrhea or vomiting Genitourinary Genitourinary: Denies change in urinary stream, difficulty urinating or dysuria Musculoskeletal Musculoskeletal: Reports none Integumentary Integumentary: Denies rash Neurologic Neurologic: Denies dizziness, headache(s) or memory loss Physical Exam Const alert and no apparent distress General Appearance: cooperative and comfortable Exam Limitations: no limitations HEENT normocephalic Eyes General Eye: normal appearance of both eyes Neck full ROM General: normal visual inspection Chest Chest: symmetrical chest wall rise Resp normal respiratory effort and normal air movement Effort and Inspection: symmetric chest movement Auscultation: clear to auscultation bilaterally Cardio regular rate and regular rhythm GI normal to inspection, nondistended, normoactive bowel sounds Back/Spine normal ROM Extremity full ROM and no calf tenderness General Extremity: normal exam except as noted Skin no rashes or lesions noted Neuro CN's II-XII intact bilaterally Psych mental status grossly normal Assessment & Plan (1) hemorrhage, delivered: (2) Anemia due to blood loss: (3) Vaping nicotine dependence, tobacco product: (4) Depression affecting : (5) Anemia affecting : (6) 39 weeks gestation of : (7) (spontaneous vaginal delivery): PLAN: PPD 2 Anemia due to blood loss HGB down to 7.0 from 7.3 yesterday- patient is asymptomatic Received IV FE yesterday and taking oral iron Repeat hgb. at noon- if decreases may need transfusion
[2023-04-14 08:32] VITALS: BP 112/68; PULSE 91
[2023-04-14 08:40] VITALS: BP 112/68; PULSE 97; RESP 16; TEMP 36.1
[2023-04-14] MEDS: busPIRone 5 MG Tablet 10 MG PO (08:44)
[2023-04-14] MEDS: Ibuprofen 600 MG Tablet PO (08:44)
--- NOTE | 2023-04-14 08:59 | NURSING ---
Discussed with pt the need for MMR vaccine, pt refuses vaccine at present.
[2023-04-14] MEDS: Ferrous Sulfate 325 MG Tablet PO (11:33)
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
[2023-04-14 11:56] LABS: Hemoglobin 7.6 g/dL (12.0-15.0); Mean Corp Hgb Conc 29.2 g/dL (32-36); Mean Corpuscular Hgb 22.3 pg (27.0-32.0); Mean Corpuscular Volume 76.2 fL (81-99); Mean Platelet Vol. 9.6 fl (6.2-12.0); Platelet Count 288 K/mm3 (150-450); RBC Distribution Width SD 43.8 fl (35.1-43.9); Red Blood Count 3.41 M/mm3 (4.2-5.4); White Blood Count 8.5 K/mm3 (4.4-11.0)
== END 2023-04-14 13:55 | disposition home or self-care (01) | DRG 806 ==
LOC: WPOUT 20:49 → WP 20:49
PROVIDERS: Advanced Practice Midwife; Admitting Provider Advanced Practice Midwife; Visit Provider Advanced Practice Midwife
DX: O42.92 Full-term premature rupture of membranes, unspecified as to length of time between rupture and onset of labor (principal); Z37.0 Single live birth; O72.1 Other immediate postpartum hemorrhage; D62 Acute posthemorrhagic anemia; F32.A Depression, unspecified; F17.290 Nicotine dependence, other tobacco product, uncomplicated; O99.344 Other mental disorders complicating childbirth; O90.81 Anemia of the puerperium; O69.81X0 Labor and delivery complicated by cord around neck, without compression, not applicable or unspecified; O70.0 First degree perineal laceration during delivery; O99.334 Smoking (tobacco) complicating childbirth; Z3A.39 39 weeks gestation of pregnancy; Z79.899 Other long term (current) drug therapy; Z87.59 Personal history of other complications of pregnancy, childbirth and the puerperium
CPT/HCPCS: 59025; 59050; 85025; 85027; 86780; 86850; 86900; 86901; 99221; J1756; J7120; A4216; G0378